=== PATIENT | female | born 1965 ===

== ENCOUNTER 2017-11-15 15:28 | Emergency (ER) | payer OTHER ==
[~2017-11-15] VITALS: Ht 157.5 cm; Wt 139.3 kg
[~2017-11-15 15:28] MED LIST: FLONASE16 GM NASAL; ZYRTEC10 MG PO
[2017-11-15] MEDS ORDERED: SIMVASTATIN20 MG (15:32)
[2017-11-15] MEDS ORDERED: METFORMIN HCL500 MG (15:32)
[2017-11-15] MEDS ORDERED: NEURONTIN300 MG (15:33)
[2017-11-15] MEDS ORDERED: LODINE XL500 MG (15:33)
== END 2017-11-15 17:46 | disposition home or self-care (01) ==
LOC: ER 15:28 → CPU-OBS 15:50 → ER 17:46
DX: M94.0 Chondrocostal junction syndrome [Tietze] (principal); R07.89 Other chest pain

== ENCOUNTER → 2017-12-14 | Outpatient (CLI) | payer OTHER ==
[~2017-12-14] MED LIST changes: +LODINE XL500 MG; +METFORMIN HCL500 MG; +NEURONTIN300 MG; +SIMVASTATIN20 MG
== END | disposition home or self-care (01) ==
LOC: NUCLEAR 08:37
DX: I10 Essential (primary) hypertension (principal); J44.9 Chronic obstructive pulmonary disease, unspecified; E11.9 Type 2 diabetes mellitus without complications

== ENCOUNTER 2019-12-07 09:35 | Outpatient (CLI) | payer OTHER | END 2019-12-07 09:45 | disposition home or self-care (01) | LOC: MAMO-SONO 09:35 | PROVIDERS: ATTEND Internal Medicine Cardiovascular Disease | DX: Z12.31 Encounter for screening mammogram for malignant neoplasm of breast (principal); N64.59 Other signs and symptoms in breast ==

== ENCOUNTER 2021-06-05 08:00 | Outpatient (CLI) | payer OTHER | END 2021-06-05 08:30 | disposition home or self-care (01) | LOC: PPH VACUNA 08:00 | PROVIDERS: ATTEND Emergency Medicine Pediatric Emergency Medicine | DX: Z23 Encounter for immunization (principal) ==

== ENCOUNTER 2021-06-05 11:14 | Outpatient (CLI) | payer OTHER | END 2021-06-05 11:15 | disposition home or self-care (01) | LOC: RAD 11:14 | PROVIDERS: ATTEND Internal Medicine Rheumatology | DX: M17.9 Osteoarthritis of knee, unspecified (principal) ==

== ENCOUNTER 2021-07-30 12:44 | Outpatient (CLI) | payer OTHER | END 2021-07-30 12:45 | disposition home or self-care (01) | LOC: RAD 12:44 | PROVIDERS: ATTEND Internal Medicine Cardiovascular Disease | DX: R13.10 Dysphagia, unspecified (principal); E03.9 Hypothyroidism, unspecified ==

== ENCOUNTER 2022-12-16 11:21 | Outpatient (CLI) | payer OTHER | END 2022-12-16 11:31 | disposition home or self-care (01) | LOC: MAMO-SONO 11:21 | PROVIDERS: ATTEND Internal Medicine Cardiovascular Disease | DX: Z12.31 Encounter for screening mammogram for malignant neoplasm of breast (principal); N60.12 Diffuse cystic mastopathy of left breast ==

== ENCOUNTER 2022-12-31 08:51 | Outpatient (CLI) | payer OTHER | END 2022-12-31 08:59 | disposition home or self-care (01) | LOC: TOM 08:51 | PROVIDERS: ATTEND Internal Medicine Cardiovascular Disease | DX: R10.9 Unspecified abdominal pain (principal); K57.30 Diverticulosis of large intestine without perforation or abscess without bleeding; Z12.11 Encounter for screening for malignant neoplasm of colon ==

== ENCOUNTER 2024-02-08 11:52 | Outpatient (CLI) | payer OTHER | END 2024-02-08 11:56 | disposition home or self-care (01) | LOC: RAD 11:52 | PROVIDERS: ATTEND Podiatrist | DX: M19.079 Primary osteoarthritis, unspecified ankle and foot (principal) ==

== ENCOUNTER 2025-01-24 17:13 | Outpatient (CLI) | payer OTHER | END 2025-01-24 17:21 | disposition home or self-care (01) | LOC: MAMO-SONO 17:13 | DX: N60.11 Diffuse cystic mastopathy of right breast (principal); N60.12 Diffuse cystic mastopathy of left breast; Z12.31 Encounter for screening mammogram for malignant neoplasm of breast ==

== ENCOUNTER 2025-03-21 11:53 | Outpatient (CLI) | payer OTHER | END 2025-03-21 11:55 | disposition home or self-care (01) | LOC: SONOGRAMA 11:53 | DX: N18.32 Chronic kidney disease, stage 3b (principal) ==

== ENCOUNTER 2025-04-10 13:43 | Outpatient (CLI) | payer OTHER | END 2025-04-10 13:55 | disposition home or self-care (01) | LOC: TOM 13:43 | PROVIDERS: ATTEND Internal Medicine Rheumatology | DX: M50.80 Other cervical disc disorders, unspecified cervical region (principal) ==